=== PATIENT | female | born 1965 | race Two or more races ===

== ENCOUNTER → 2017-01-07 | Emergency (ER) | payer OTHER ==
[~2017-01-07] VITALS: Ht 152.4 cm; Wt 82.1 kg
[~2017-01-07] MED LIST: ASPIR 8181 MG ORAL; GUAIFENESIN1200 MG PO; IBUPROFEN600 MG ORAL; LISINOPRIL20 MG ORAL; METFORMIN HCL850 M1 ORAL; NASONEX17 GM NASAL; NITROFURANTOIN100 M2 ORAL; NORCO 5-325 TA1 EACH ORAL; ZOCOR20 MG ORAL
[2017-01-07 18:27] VITALS: BP 155/96
--- NOTE | 2017-01-07 18:59 | Emergency Room Report ---
History of Present Illness General Chief Complaint: Upper Respiratory Illness Source: Patient Present Illness HPI 51 YO female presents to the ED c/o : nasal congestion, increased sinus pressure , dry cough , and 8/10 sore throat with increased phlegm x 2 months. pt. has been treated with 2 courses of ABX by her PCP, and has been taking OTC nasal decongestant daily with prescription decongestant. pt states initially she felt a bit better then her nasal congestion and rhinorrhea increased. denies purulent drainage, UNDERWOOD, fevers, chills, or productive cough. pt. states she can feel something dripping down her throat at night, and is not able to breath through the nose easily. denies hx. of dm or immune compromise, denies rashes. Denies CP, Palpitations, LOC, AMS, dizziness, Changes in Vision, Sensation, paresthesias, or a sudden severe headache. Allergies: Coded Allergies: No Known Allergies (Unverified , 07/21/15) Patient History Past Medical History: see triage record Past Surgical History: none Pertinent Family History: none Last Menstrual Period: 01/06/17 Now: No Immunizations: UTD Reviewed Nursing Documentation: PMH: Agreed, PSxH: Agreed Nursing Documentation-PMH Past Medical History: No History, Except For Hx Cardiac Problems: No - Hyperlipidemia Hx Hypertension: Yes Hx Pacemaker: No Hx Asthma: No Hx COPD: No Hx Diabetes: Yes Hx Cancer: No Hx Gastrointestinal Problems: No Hx Dialysis: No Hx Neurological Problems: No Hx Cerebrovascular Accident: No Hx Seizures: No Review of Systems All Other Systems: negative except mentioned in HPI Physical Exam Vital Signs Date Time Temp Pulse Resp B/P Pulse Ox O2 Delivery O2 Flow Rate FiO2 01/07/17 18:18 97.9 87 16 155/96 100 Room Air Sp02 EP Interpretation: reviewed, normal General Appearance: no apparent distress, alert, GCS 15, non-toxic Head: normocephalic, atraumatic Eyes: bilateral eye PERRL, bilateral eye normal inspection ENT: hearing grossly normal, no angioedema, normal voice, TMs + canals normal, uvula midline, moist mucus membranes, nasal congestion - minimal patency to the nares bilaterally, no appreciable rhinorrhea noted, no purulent d/c, no nasal discoloration/bruising or rash. , pharyngeal erythema - cobble stone appearance , no petechiae, no exudates, evidence of Post nasal drainage Neck: full range of motion, no meningismus, no bony tend, supple/symm/no masses Respiratory: chest non-tender, lungs clear, normal breath sounds, no wheezing, speaking full sentences Cardiovascular #1: regular rate, rhythm, no edema Gastrointestinal: normal bowel sounds, non tender, soft, no guarding, no rebound Rectal: deferred Genitourinary: no CVA tenderness Musculoskeletal: back normal, gait/station normal, normal range of motion, non- tender, no calf tenderness Neurologic: alert, oriented x3, responsive, motor strength/tone normal, sensory intact, speech normal Psychiatric: judgement/insight normal, memory normal, mood/affect normal, no suicidal/homicidal ideation Skin: normal color, no rash, warm/dry, well hydrated Lymphatic: no adenopathy Medical Decision Making PA Attestation Dr. Padilla is my supervising Physician whom patient management has been discussed with. Diagnostic Impression: Primary Impression: Nasal congestion due to prolonged use of decongestants Additional Impression: Post-nasal drainage ER Course 51 YO female presents to the ED c/o : nasal congestion, increased sinus pressure , dry cough , and 8/10 sore throat with increased phlegm x 2 months. pt. has been treated with 2 courses of abx by her pcp, and has been taking OTC nasal decongestant daily with prescription decongestant. pt states initially she felt a bit better then her nasal congestion and rhinorrhea increased. denies purulent drainage, UNDERWOOD, fevers, chills, or productive cough. pt. states she can feel something dripping down her throat at night, and is not able to breath through the nose easily. Ddx considered but are not limited to URI, pneumonia, PE, strep pharyngitis, meningitis, sinusitis, rebound congestion due to excessive decongestant use, allergies/rhinitis Vital signs: Pt. is afebrile, the remaining VS are WNL H&PE are most consistent with rebound nasal congestion and viral URI symptoms - no meningeal signs, oropharynx is not involved, no evidence of bacterial infection at this time. lungs are CTA. no purulent drainage noted from the nares. ORDERS: none required at this time, the diagnosis is clinical ED INTERVENTIONS: None required at this time. PT. EDUCATION: - Discussed antibiotic resistance with inappropriate prescribing of antibiotics for viral illnesses. Discussed signs and symptoms to indicate viral illness versus bacterial illness. - Also d/w pt. "rebound congestion" and that she has been doubling up unknowingly on pseudoephedrine and this should not be taken for prolonged periods of time. DISCHARGE: At this time pt. is stable for d/c to home. Will provide printed patient care instructions, and any necessary prescriptions. Care plan and follow up instructions have been discussed with the patient prior to discharge. Last Vital Signs Date Time Temp Pulse Resp B/P Pulse Ox O2 Delivery O2 Flow Rate FiO2 01/07/17 18:27 87 16 Room Air 01/07/17 18:27 97.9 155/96 100 Disposition: HOME, SELF-CARE Condition: Stable Scripts Guaifenesin (Guaifenesin) 1,200 Mg Tab.er.12h 1200 MG PO BID for 14 Days, #28 TAB Prov: Sarah Bonilla 01/07/17 Mometasone Furoate (NASONEX) 17 Gm [place].pump 2 SPRAYS NASAL DAILY, #17 GM 0 Refills Prov: Sarah Bonilla 01/07/17 Patient Instructions: Upper Respiratory Infection, Adult, [id number] Additional Instructions: Take medications as directed. Follow up with PCP in 3-5 days Return sooner to ED if new symptoms occur, or current symptoms become worse. - Please note that this Emergency Department Report was dictated using [employer] [place] technology software, occasionally this can lead to erroneous entry secondary to interpretation by the dictation equipment. Sarah Bonilla Jan 07, 2017 18:59
[2017-01-07 19:09] VITALS: BP 155/96
== END | disposition home or self-care (01) ==
LOC: EMR 20:09
DX: R09.81 Nasal congestion (principal); R09.82 Postnasal drip; E11.9 Type 2 diabetes mellitus without complications; I10 Essential (primary) hypertension; E78.5 Hyperlipidemia, unspecified
CPT/HCPCS: 99284

== ENCOUNTER 2019-09-25 17:47 | Emergency (ER) | payer MEDICAID, OTHER ==
[~2019-09-25] VITALS: Ht 152.4 cm; Wt 82.1 kg
--- NOTE | 2019-09-25 18:16 | NUR ---
ED Nurse Note: pt walked in c/o lower abd pain for past week, pt reports she has been having a lot of gas and bloating, reports she was seen by the primary doctor and was prescribed omeprazole and it helped relieve pain for a little bit but continue to have pain. pt denies n/v/d nor urinary problem nor constipation, pt reports normal BM. denies tenderness. abd soft nontender, active BS. will cont monitor.
[2019-09-25] MEDS ORDERED: Isovue-300 100ml vial INJ PRN (18:30)
--- NOTE | 2019-09-25 18:59 | NUR ---
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
[2019-09-25 19:12] LABS: APPEARANCE,URINE SLIGHTLY CLOUDY; BILIRUBIN, URINE NEGATIVE (NEGATIVE); COLOR,URINE BROWN; GLUCOSE, URINE (UA) NEGATIVE (NEGATIVE); KETONES,URINE 1+ (NEGATIVE); LEUKOCYTE ESTERASE ,URINE 3+ (NEGATIVE); NITRITE,URINE NEGATIVE (NEGATIVE); PH,URINE 5 (4.5-8.0); PROTEIN,URINE 1+ (NEGATIVE); UROBILINOGEN,URINE 1 MG/DL (0.0-1.0)
[2019-09-25 19:14] LABS: BASOPHILS % (AUTO) 1.9 % (0.0-2.0); EOSINOPHILS % (AUTO) 1.6 % (0.0-3.0); HEMATOCRIT 36.8 % (37.0-47.0); HEMOGLOBIN 12.2 G/DL (12.0-16.0); MEAN CORPUSCULAR VOLUME 81 FL (80-99); MONOCYTES % (AUTO) 7.5 % (1.0-10.0); PLATELET COUNT 274 K/UL (150-450); RED BLOOD COUNT 4.52 M/UL (4.20-5.40); WHITE BLOOD COUNT 8.5 K/UL (4.8-10.8)
[2019-09-25 19:26] LABS: ANION GAP 7 mmol/L (5-15); BLOOD UREA NITROGEN 23 mg/dL (7-18); CARBON DIOXIDE 29 MMOL/L (21-32); CHLORIDE 106 MMOL/L (98-107); POTASSIUM 3.9 MMOL/L (3.5-5.1); SODIUM 142 MMOL/L (136-145)
[2019-09-25 19:30] LABS: ALANINE AMINOTRANSFERASE 38 U/L (12-78); ALBUMIN 4.2 G/DL (3.4-5.0); ALBUMIN/GLOBULIN RATIO 1.3 (1.0-2.7); ALKALINE PHOSPHATASE 48 U/L (46-116); ASPARTATE AMINO TRANSFERASE 13 U/L (15-37); BILIRUBIN,TOTAL 0.3 MG/DL (0.2-1.0)
[2019-09-25 19:37] VITALS: BP 148/75
[2019-09-25] MEDS ORDERED: cefTRIAXone 1 GM in NS 55 ML IVPB ONE (20:15)
--- NOTE | 2019-09-25 20:29 | NUR ---
ED Nurse Note: pt resting at this time, iv antibiotic started per ERMD order, safety precautions in place, will cont monitor.
[2019-09-25 20:37] VITALS: BP 148/86
[2019-09-25 21:00] VITALS: BP 132/86
[2019-09-25] MEDS ORDERED: CIPROFLOXACIN500 M2 ORAL (21:00)
[2019-09-25] MEDS ORDERED: ACETAMINOPHEN-1 EAC1 ORAL (21:00)
--- NOTE | 2019-09-25 21:00 | NUR ---
ED Nurse Note: pt cleared to be d/c per ermd, pt discharge and aftercare instruction provided w/ prescription, pt education done via discussion and handout, pt advised to follow up with pcp or return to ed if changes in condition, vss, ambulatory w/ steady gait, left w/ all belongings, iv d/c and id band removed, pt verbalized understanding and agrees with plan.
--- NOTE | 2019-09-25 21:55 | Emergency Room Report ---
History of Present Illness General Chief Complaint: Abdominal Pain Source: Patient Present Illness HPI 54-year-old female presents ED for evaluation. Complaining of abdominal pain x1 week. Localized to lower abdomen. Comes and goes. Sharp, 9 out of 10, nonradiating. States the pain was so bad earlier today that she cried. Denies fevers or chills. Denies nausea or vomiting. Denies diarrhea. No other aggravating relieving factors. Denies any other associated symptoms Allergies: Coded Allergies: No Known Allergies (Unverified , 07/21/15) Patient History Past Medical History: DM, HTN Past Surgical History: none Pertinent Family History: none Social History: Denies: smoking, alcohol use, drug use Last Menstrual Period: MENOPAUSE Now: No Immunizations: UTD Reviewed Nursing Documentation: PMH: Agreed; PSxH: Agreed Nursing Documentation-PMH Past Medical History: No History, Except For Hx Cardiac Problems: No - Hyperlipidemia Hx Hypertension: Yes Hx Pacemaker: No Hx Asthma: No Hx COPD: No Hx Diabetes: Yes Hx Cancer: No Hx Gastrointestinal Problems: No Hx Dialysis: No Hx Neurological Problems: No Hx Cerebrovascular Accident: No Hx Seizures: No Review of Systems All Other Systems: negative except mentioned in HPI Physical Exam Vital Signs Date Time Temp Pulse Resp B/P (MAP) Pulse Ox O2 Delivery O2 Flow Rate FiO2 09/25/19 17:54 98.2 83 15 170/93 (118) 96 Room Air Sp02 EP Interpretation: reviewed, normal General Appearance: no apparent distress, alert, GCS 15, non-toxic Head: normocephalic, atraumatic Eyes: bilateral eye normal inspection, bilateral eye PERRL ENT: hearing grossly normal, normal pharynx, no angioedema, normal voice Neck: full range of motion, supple/symm/no masses Respiratory: chest non-tender, lungs clear, normal breath sounds, speaking full sentences Cardiovascular #1: regular rate, rhythm, no edema Cardiovascular #2: 2+ carotid (R), 2+ carotid (L), 2+ radial (R), 2+ radial (L) , 2+ dorsalis pedis (R), 2+ dorsalis pedis (L) Gastrointestinal: normal bowel sounds, soft, non-distended, no guarding, no rebound, tenderness - suprapubic Rectal: deferred Genitourinary: normal inspection, no CVA tenderness Musculoskeletal: back normal, gait/station normal, normal range of motion, non- tender Neurologic: alert, oriented x3, responsive, motor strength/tone normal, sensory intact, speech normal Psychiatric: judgement/insight normal, memory normal, mood/affect normal, no suicidal/homicidal ideation Reflexes: 3+ bicep (R), 3+ bicep (L), 3+ tricep (R), 3+ tricep (L), 3+ knee (R) , 3+ knee (L) Lymphatic: no adenopathy Medical Decision Making Diagnostic Impression: Primary Impression: Diverticulitis Additional Impression: Cystitis Labs Test 09/25/19 18:30 White Blood Count 8.5 K/UL (4.8-10.8) Red Blood Count 4.52 M/UL (4.20-5.40) Hemoglobin 12.2 G/DL (12.0-16.0) Hematocrit 36.8 % (37.0-47.0) Mean Corpuscular Volume 81 FL (80-99) Mean Corpuscular Hemoglobin 27.0 PG (27.0-31.0) Mean Corpuscular Hemoglobin Concent 33.2 G/DL (32.0-36.0) Red Cell Distribution Width 12.0 % (11.6-14.8) Platelet Count 274 K/UL (150-450) Mean Platelet Volume 7.1 FL (6.5-10.1) Neutrophils (%) (Auto) 65.0 % (45.0-75.0) Lymphocytes (%) (Auto) 24.0 % (20.0-45.0) Monocytes (%) (Auto) 7.5 % (1.0-10.0) Eosinophils (%) (Auto) 1.6 % (0.0-3.0) Basophils (%) (Auto) 1.9 % (0.0-2.0) Urine Color Brown Urine Appearance Slightly cloudy Urine pH 5 (4.5-8.0) Urine Specific [place] 1.025 (1.005-1.035) Urine Protein 1+ (NEGATIVE) Urine Glucose (UA) Negative (NEGATIVE) Urine Ketones 1+ (NEGATIVE) Urine Blood 2+ (NEGATIVE) Urine Nitrite Negative (NEGATIVE) Urine Bilirubin Negative (NEGATIVE) Urine Urobilinogen 1 MG/DL (0.0-1.0) Urine Leukocyte Esterase 3+ (NEGATIVE) Urine RBC 2-4 /HPF (0 - 2) Urine WBC 40-60 /HPF (0 - 2) Urine Squamous Epithelial Cells Occasional /LPF Urine Bacteria Few /HPF (NONE) Sodium Level 142 MMOL/L (136-145) Potassium Level 3.9 MMOL/L (3.5-5.1) Chloride Level 106 MMOL/L (98-107) Carbon Dioxide Level 29 MMOL/L (21-32) Anion Gap 7 mmol/L (5-15) Blood Urea Nitrogen 23 mg/dL (7-18) Creatinine 1.0 MG/DL (0.55-1.30) Estimat Glomerular Filtration Rate 57.8 mL/min (>60) Glucose Level 120 MG/DL (74-106) Calcium Level 9.0 MG/DL (8.5-10.1) Total Bilirubin 0.3 MG/DL (0.2-1.0) Aspartate Amino Transf (AST/SGOT) 13 U/L (15-37) Alanine Aminotransferase (ALT/SGPT) 38 U/L (12-78) Alkaline Phosphatase 48 U/L (46-116) Total Protein 7.5 G/DL (6.4-8.2) Albumin 4.2 G/DL (3.4-5.0) Globulin 3.3 g/dL Albumin/Globulin Ratio 1.3 (1.0-2.7) Lipase 197 U/L (73-393) CT/MRI/US Diagnostic Results CT/MRI/US Diagnostic Results : Imaging Test Ordered: CT A/P Impression ABDOMEN: Liver: Portions of the upper abdomen including portions of the liver and spleen were not imaged. Mild hepatic steatosis. Gallbladder and bile ducts: Cholelithiasis. No ductal dilation. Pancreas: Unremarkable. No mass. No ductal dilation. Spleen: See above. Adrenals: Unremarkable. No mass. Kidneys and ureters: 26 mm cortical renal cyst on the right. Nonobstructing left lower renal pole calculus. 16 mm parapelvic/cortical renal cyst on the left. Stomach and bowel: Mild wall thickening very short segment of proximal sigmoid colon with adjacent inflammatory changes. There is some fat content central to the inflammation. Negative for obstruction or pneumatosis. PELVIS: Appendix: No findings to suggest acute appendicitis. Bladder: Unremarkable. No mass. Reproductive: Unremarkable as visualized. ABDOMEN and PELVIS: Intraperitoneal space: Unremarkable. No free air. No significant fluid collection. Bones/joints: No acute fracture. No dislocation. Soft tissues: Unremarkable. Vasculature: Unremarkable. No abdominal aortic aneurysm. Lymph nodes: Unremarkable. No enlarged lymph nodes. Last Vital Signs Date Time Temp Pulse Resp B/P (MAP) Pulse Ox O2 Delivery O2 Flow Rate FiO2 09/25/19 19:37 98.2 86 16 98 Room Air 09/25/19 17:54 170/93 (118) Status: improved Disposition: HOME, SELF-CARE Condition: Stable Scripts Acetaminophen With Codeine (T#3) (TYLENOL #3 TAB*) Y Tab 1 TAB ORAL Q8H PRN for For Pain for 3 Days, #12 TAB Prov: Jeff Isabel MD 09/25/19 Ciprofloxacin Hcl* (CIPROFLOXACIN HCL*) 500 Mg Tablet 500 MG ORAL Q12H, #14 TAB 0 Refills Prov: Jeff Isabel MD 09/25/19 Patient Instructions: Diverticulitis, [id number], Urinary Tract Infection Jeff Isabel MD Sep 25, 2019 21:54
== END 2019-09-25 21:00 | disposition home or self-care (01) ==
LOC: EMR 18:17
DX: K57.92 Diverticulitis of intestine, part unspecified, without perforation or abscess without bleeding (principal); N30.90 Cystitis, unspecified without hematuria; E11.9 Type 2 diabetes mellitus without complications; I10 Essential (primary) hypertension; E78.5 Hyperlipidemia, unspecified; N28.1 Cyst of kidney, acquired; N20.0 Calculus of kidney
CPT/HCPCS: 36415; 74177; 80053; 81003; 83690; 85025; 87086; 96365; 96375; J0696; Q9967; S0028; Z7502; 99284

== ENCOUNTER 2020-02-21 08:22 | Emergency (ER) | payer SELFPAY ==
[~2020-02-21] VITALS: Ht 152.4 cm; Wt 77.1 kg
[~2020-02-21 08:22] MED LIST changes: +ACETAMINOPHEN-1 EAC1 ORAL; +CIPROFLOXACIN500 M2 ORAL
[2020-02-21 08:29] VITALS: BP 159/85
[2020-02-21] MEDS ORDERED: LOSARTAN POTASS25 MG ORAL (08:34)
--- NOTE | 2020-02-21 08:36 | NUR ---
ED Nurse Note: Pt walked into ED w/ c/o L underarm abscess for 4 days. Pt denies pain, numbness, or tingling in affected site. Abscess is red and swollen, bu tno discharge. Pt is alert and orientedx4, ambulatory. Pt denies cough, sneezing, runny nose.
[2020-02-21] MEDS ORDERED: Lidocaine 1% 10mg/ml/EPI 0.01mg/ml 30ml INJ ONE (09:00)
[2020-02-21] MEDS ORDERED: DOXYCYCLINE MO100 MG ORAL (09:18)
--- NOTE | 2020-02-21 09:22 | NUR ---
ED Nurse Note: Irrigated pts abscess site per MD order.
--- NOTE | 2020-02-21 09:38 | Emergency Room Report ---
History of Present Illness General Chief Complaint: Skin Rash/Abscess Source: Patient Present Illness HPI Patient is a 54-year-old female presents after increased left-sided axillary swelling. This is been gradual onset over the past 3 to 4 days. Onset after shaving. Denies any breast lump. Denies any weight loss or fever. Had been having increased pain to the area. Patient had previous history of diabetes. She denies any other locations of abscesses. Allergies: Coded Allergies: No Known Allergies (Unverified , 07/21/15) COVID-19 Screening Contact w/high risk pt: No Recent Travel to affected area: No Experienced COVID-19 symptoms?: No Patient History Past Medical History: see triage record Reviewed Nursing Documentation: PMH: Agreed; PSxH: Agreed Nursing Documentation-PMH Past Medical History: No History, Except For Hx Cardiac Problems: No Hx Hypertension: Yes Hx Pacemaker: No Hx Asthma: No Hx COPD: No Hx Diabetes: Yes Hx Cancer: No Hx Gastrointestinal Problems: No Hx Dialysis: No History Of Psychiatric Problem: No Hx Neurological Problems: No Hx Cerebrovascular Accident: No Hx Seizures: No Review of Systems All Other Systems: negative except mentioned in HPI Physical Exam Vital Signs Date Time Temp Pulse Resp B/P (MAP) Pulse Ox O2 Delivery O2 Flow Rate FiO2 02/21/20 08:29 98.4 14 159/85 99 Room Air 02/21/20 08:29 80 General Appearance: well appearing, no apparent distress, alert, GCS 15 Head: normocephalic, atraumatic ENT: hearing grossly normal, normal voice Neck: full range of motion, supple Respiratory: lungs clear, no respiratory distress, speaking full sentences Cardiovascular #1: normal inspection Musculoskeletal: no calf tenderness Neurologic: alert, motor strength/tone normal, normal gait Psychiatric: mood/affect normal Skin: other - Left axillary abscess approximately 3 cm Procedures Incision and Drainage Incision and Drainage : Consent: Emergent Site: axilla Blade Size: 15 I & D Procedure: betadine prep Wound Location: axilla Wound's Depth, Shape: superficial Wound Explored: clean Anesthesia: Lidocaine w/ Epi Volume Anesthetic (ccs): 4 Patient Tolerated: Well Complications: None Progress large amount of purulent drainage. Medical Decision Making Diagnostic Impression: Primary Impression: Abscess of axilla, left ER Course Patient presented for skin rash. Differential diagnosis included was not limited to abscess, cellulitis, folliculitis, necrotizing fascitis. Patient appears to have an axillary abscess. There does not appear to be any evidence of systemic toxicity. Abscess was incised and drained after consent. Drained approximately 3 cc of purulent material.She was advised that she should have some breast imaging if had not had any recently. Patient appears to be stable for outpatient management. Patient was advised wound care. She was advised to return if any worsening or other concerns. Last Vital Signs Date Time Temp Pulse Resp B/P (MAP) Pulse Ox O2 Delivery O2 Flow Rate FiO2 02/21/20 08:29 98.4 80 14 159/85 (109) 99 Room Air Status: improved Disposition: HOME, SELF-CARE Condition: Stable Scripts Doxycycline Monohydrate* (DOXYCYCLINE MONOHYDRATE*) 100 Mg Capsule 100 MG ORAL Q12H, #14 CAP 0 Refills Prov: Glen Rasmussen MD 02/21/20 Patient Instructions: Abscess Additional Instructions: Follow up with your doctor for recheck. Return if worse. Cover wound for next few days with gauze. Change gauze daily. Glen Rasmussen MD Feb 21, 2020 09:38
[2020-02-21 09:40] VITALS: BP 154/83
--- NOTE | 2020-02-21 09:40 | NUR ---
ER DISCHARGE NOTE: Patient is cleared to be discharged per ERMD, pt is aox4, on room air, with stable vital signs. pt was given dc and prescription instructions, pt was able to verbalize understanding, pt id band removed. pt is able to ambulate with steady gait. pt took all belongings. Pt educated regarding doxycyclin.
== END 2020-02-21 09:40 | disposition home or self-care (01) ==
LOC: EMR 09:03
DX: L02.412 Cutaneous abscess of left axilla (principal); I10 Essential (primary) hypertension
CPT/HCPCS: 99283

== ENCOUNTER 2020-02-27 11:29 | Emergency (ER) | payer SELFPAY ==
[~2020-02-27] VITALS: Ht 152.4 cm; Wt 82.6 kg
[~2020-02-27 11:29] MED LIST changes: +DOXYCYCLINE MO100 MG ORAL; +LOSARTAN POTASS25 MG ORAL
[2020-02-27 11:36] VITALS: BP 134/80
--- NOTE | 2020-02-27 11:36 | NUR ---
ED Nurse Note: pt walked into ED for c/o possible kidney stone. Pt reports pain on lower abd area x 2 days, reports vomiting last night.
--- NOTE | 2020-02-27 11:56 | Emergency Room Report ---
History of Present Illness General Chief Complaint: Abdominal Pain Source: Patient Present Illness HPI Patient 54-year-old female presents after increased right-sided flank pain. Onset last night. Associated nausea and vomiting. Prior history of kidney stones. Had previously had small stones to the left side. Denies any fever. Had recently been on antibiotics due to left axillary abscess. Denies any diarrhea or cough. Allergies: Coded Allergies: No Known Allergies (Unverified , 07/21/15) COVID-19 Screening Contact w/high risk pt: No Recent Travel to affected area: No Experienced COVID-19 symptoms?: No Patient History Now: No Reviewed Nursing Documentation: PMH: Agreed; PSxH: Agreed Nursing Documentation-PMH Hx Cardiac Problems: No Hx Hypertension: Yes Hx Pacemaker: No Hx Asthma: No Hx COPD: No Hx Diabetes: Yes Hx Cancer: No Hx Gastrointestinal Problems: No - kidney stone 01/2020 Hx Dialysis: No Hx Neurological Problems: No Hx Cerebrovascular Accident: No Hx Seizures: No Review of Systems All Other Systems: negative except mentioned in HPI Physical Exam Vital Signs Date Time Temp Pulse Resp B/P (MAP) Pulse Ox O2 Delivery O2 Flow Rate FiO2 02/27/20 11:35 98.1 89 19 129/84 (99) 98 Room Air Sp02 EP Interpretation: reviewed, normal General Appearance: normal inspection, well appearing, no apparent distress, alert, GCS 15 Head: atraumatic ENT: normal ENT inspection, hearing grossly normal, normal voice Neck: normal inspection, full range of motion, supple, no bony tend Respiratory: normal inspection, lungs clear, normal breath sounds, no respiratory distress, no retraction, no wheezing Cardiovascular #1: regular rate, rhythm, no edema Gastrointestinal: normal inspection, normal bowel sounds, non tender, soft, no guarding, no hernia Genitourinary: no CVA tenderness Musculoskeletal: normal inspection, back normal, normal range of motion Neurologic: alert, motor strength/tone normal, chief nursing executive III-XII nml as tested, oriented x3, responsive, speech normal, normal inspection Psychiatric: normal inspection, judgement/insight normal, mood/affect normal Skin: no rash, other - healed axillary abscess Medical Decision Making Diagnostic Impression: Primary Impression: Renal colic on right side Last Vital Signs Date Time Temp Pulse Resp B/P (MAP) Pulse Ox O2 Delivery O2 Flow Rate FiO2 02/27/20 11:35 98.1 89 19 129/84 (99) 98 Room Air Status: improved Disposition: HOME, SELF-CARE Condition: Stable Glen Rasmussen MD Feb 27, 2020 11:56
[2020-02-27] MEDS ORDERED: Ketorolac 60mg Inj IM ONE (12:00)
--- NOTE | 2020-02-27 13:13 | NUR ---
ED Nurse Note: UA SENT TO LAB
[2020-02-27] MEDS ORDERED: NORCO 5-325 TA1 EAC1 ORAL (13:19)
[2020-02-27 13:24] LABS: APPEARANCE,URINE CLEAR; BILIRUBIN, URINE 1+ (NEGATIVE); GLUCOSE, URINE (UA) NEGATIVE (NEGATIVE); KETONES,URINE NEGATIVE (NEGATIVE); LEUKOCYTE ESTERASE ,URINE 2+ (NEGATIVE); NITRITE,URINE POSITIVE (NEGATIVE); PH,URINE 5 (4.5-8.0); PROTEIN,URINE 1+ (NEGATIVE); UROBILINOGEN,URINE 4 MG/DL (0.0-1.0)
--- NOTE | 2020-02-27 13:30 | NUR ---
ED Nurse Note: US at bedside.
[2020-02-27 13:42] LABS: COLOR,URINE YELLOW
--- NOTE | 2020-02-27 14:05 | NUR ---
ER DISCHARGE NOTE: Patient is cleared to be discharged per ERMD, pt is aox4, on room air, with stable vital signs. pt was given dc and prescription instructions, pt was able to verbalize understanding, pt id band removed. pt is able to ambulate with steady gait. pt took all belongings.
--- NOTE | 2020-02-27 14:07 | Diagnostic Imaging Report ---
EXAM: US Abdomen Limited, Right Upper Quadrant CLINICAL HISTORY: ABD PAIN TECHNIQUE: Real-time ultrasound of the right upper quadrant with image documentation. COMPARISON: CT abdomen/pelvis on 09/25/2019 FINDINGS: Gallbladder: Stone or sludge ball in the gallbladder. No significant gallbladder wall thickening or pericholecystic fluid Right kidney: Right kidney measures 10.1 cm in length. Complex right renal cyst measuring up to 2.7 cm. Small calcifications along the periphery of the cyst. No stones. No hydronephrosis. IMPRESSION: 1. No hydronephrosis or definite stone right kidney. Complex right renal cyst. 2. Cholelithiasis versus sludgeball. No sonographic evidence for acute cholecystitis.
== END 2020-02-27 14:02 | disposition home or self-care (01) ==
LOC: EMR 11:50
DX: N23 Unspecified renal colic (principal); Z87.442 Personal history of urinary calculi; I10 Essential (primary) hypertension; E11.9 Type 2 diabetes mellitus without complications
CPT/HCPCS: 76705; 81003; 96372; 99284

== ENCOUNTER 2020-06-26 18:54 | Emergency (ER) | payer SELFPAY ==
[~2020-06-26] VITALS: Ht 162.6 cm; Wt 79.4 kg
[~2020-06-26 18:54] MED LIST changes: +NORCO 5-325 TA1 EAC1 ORAL
[2020-06-26 19:10] VITALS: BP 170/100
--- NOTE | 2020-06-26 19:45 | Emergency Room Report ---
History of Present Illness General Chief Complaint: Eye Problems Source: Patient, Family Member Present Illness HPI 55-year-old female with past medical history of high blood pressure, high cholesterol, pre diabetes, presents with burning and swelling to bilateral eyes , left greater than right, onset prior to arrival. She reports that she has some skin tags on her eyelids and she she put some "milk of a fig leaf" over her eyelids to try to remove the skin tags but then started feeling burning and swelling to the eyes. She has never used the milk of a fig leaf before. She denies any rash, throat closure, difficulty breathing, vomiting. No visual changes. She has been applying ice to the affected area with mild relief. No medications taken. Allergies: Coded Allergies: No Known Allergies (Unverified , 07/21/15) COVID-19 Screening Contact w/high risk pt: No Recent Travel to affected area: No Experienced COVID-19 symptoms?: No COVID-19 Testing performed PHYSICAL THERAPY NURSE: No Patient History Past Medical History: see triage record Last Menstrual Period: na Reviewed Nursing Documentation: PMH: Agreed; PSxH: Agreed Nursing Documentation-PMH Past Medical History: No History, Except For Hx Cardiac Problems: No Hx Hypertension: Yes Hx Pacemaker: No Hx Asthma: No Hx COPD: No Hx Diabetes: Yes Hx Cancer: No Hx Gastrointestinal Problems: No - kidney stone 01/2020 Hx Dialysis: No Hx Neurological Problems: No Hx Cerebrovascular Accident: No Hx Seizures: No Review of Systems All Other Systems: negative except mentioned in HPI Physical Exam Vital Signs Date Time Temp Pulse Resp B/P (MAP) Pulse Ox O2 Delivery O2 Flow Rate FiO2 06/26/20 19:01 98.4 103 20 170/100 (123) 98 Room Air Sp02 EP Interpretation: reviewed, normal General Appearance: normal inspection, well appearing, no apparent distress, alert, GCS 15, non-toxic Eyes: left eye lid inflammation - There is angioedema of the left upper eyelid. No eye involvement. No signs of cellulitis. ENT: EOM grossly intact, normal pharynx, normal voice, uvula midline Neck: normal inspection, full range of motion, supple, thyroid normal, no meningismus, no bony tend Respiratory: chest non-tender, lungs clear, normal breath sounds, no respiratory distress Cardiovascular #1: normal peripheral pulses, regular rate, rhythm Musculoskeletal: normal inspection, normal range of motion, gait/station normal Neurologic: alert, motor strength/tone normal, b operator III-XII nml as tested, oriented x3, sensory intact, speech normal Psychiatric: judgement/insight normal, mood/affect normal Skin: no rash, normal color, warm/dry Lymphatic: no adenopathy Medical Decision Making PA Attestation Dr. Huerta is my supervising physician whom patient management and care has been discussed with. Diagnostic Impression: Primary Impression: Angioedema Qualified Codes: T78.3XXA - Angioneurotic edema, initial encounter Additional Impression: Allergic reaction Qualified Codes: T78.40XA - Allergy, unspecified, initial encounter ER Course Pt. presents to the ED c/o bilateral eyelid swelling, left greater than right, status post rubbing milk of a fake leaf on her eyelids to try to remove skin tags. Ddx considered but are not limited to allergic reaction, angioedema, anaphylaxis , cellulitis. Vital signs: are WNL, pt. is afebrile H&PE are most consistent with allergic reaction, angioedema. No signs of anaphylaxis. ORDERS: none required at this time, the diagnosis is clinical. ED INTERVENTIONS: Patient given Benadryl, Prednisone, Pepcid for allergic reaction. Significant relief upon recheck. DISCHARGE: At this time pt. is stable for d/c to home. Will provide printed patient care instructions, and any necessary prescriptions. Advised to follow up outpatient in 1-2 days. Care plan and follow up instructions have been discussed with the patient prior to discharge. Last Vital Signs Date Time Temp Pulse Resp B/P (MAP) Pulse Ox O2 Delivery O2 Flow Rate FiO2 06/26/20 19:01 98.4 103 20 170/100 (123) 98 Room Air Disposition: HOME, SELF-CARE Condition: Stable Scripts Cetirizine Hcl* (ZYRTEC*) 10 Mg Tablet 10 MG ORAL DAILY, #30 TAB 0 Refills Prov: Bensoussan,Jessica N. P.A. 06/26/20 Cephalexin* (KEFLEX*) 500 Mg Capsule 500 MG ORAL EVERY 6 HOURS for 7 Days, #28 CAP Prov: Bensoussan,Jessica N. P.A. 06/26/20 Diphenhydramine Hcl (BENADRYL ALLERGY) 25 Mg Tablet 25 MG PO QHS, #10 TAB Prov: Bensoussan,Jessica N. P.A. 06/26/20 Erythromycin Base (Erythromycin) 1 Gm Oint...g. 1 GM OP BID, #1 TUB Prov: Jessica Hayden 06/26/20 Jessica Hayden Jun 26, 2020 19:45
[2020-06-26] MEDS ORDERED: CEPHALEXIN500 MG ORAL (20:16)
[2020-06-26] MEDS ORDERED: ZYRTEC10 MG ORAL (20:16)
[2020-06-26] MEDS ORDERED: ERYTHROMYCIN1 G1 OP (20:16)
[2020-06-26] MEDS ORDERED: BENADRYL ALLERG25 M1 PO (20:16)
[2020-06-26 20:20] VITALS: BP 145/95
== END 2020-06-26 20:20 | disposition home or self-care (01) ==
LOC: EMR 20:16
DX: T78.3XXA Angioneurotic edema, initial encounter (principal); T78.40XA Allergy, unspecified, initial encounter; I10 Essential (primary) hypertension; E11.9 Type 2 diabetes mellitus without complications; Z87.442 Personal history of urinary calculi; X58.XXXA Exposure to other specified factors, initial encounter; Y92.9 Unspecified place or not applicable; L91.8 Other hypertrophic disorders of the skin
CPT/HCPCS: 99282; J7512

== ENCOUNTER 2020-11-06 09:14 | Emergency (ER) | payer OTHER ==
[~2020-11-06] VITALS: Ht 152.4 cm; Wt 78.9 kg
[~2020-11-06 09:14] MED LIST changes: +BENADRYL ALLERG25 M1 PO; +CEPHALEXIN500 MG ORAL; +ERYTHROMYCIN1 G1 OP; +ZYRTEC10 MG ORAL
[2020-11-06 09:21] VITALS: BP 169/92
--- NOTE | 2020-11-06 09:30 | NUR ---
ED Nurse Note: Patient from home and walked in due to right flank pain and burning sensation when urinating x 2 days. Patient denies vaginal discharge but has history of kidney stones. patient is AAO x4, ambulatory with non labored breathing.
[2020-11-06] MEDS ORDERED: CEPHALEXIN500 MG ORAL (09:45)
[2020-11-06] MEDS ORDERED: NAPROXEN500 M1 ORAL (09:45)
--- NOTE | 2020-11-06 09:46 | Emergency Room Report ---
History of Present Illness General Chief Complaint: Female Urogenital Problems Source: Patient Present Illness HPI 55-year-old obese female with past medical history of diabetes, hypertension, dyslipidemia presents with dysuria and right flank pain x5 days. Patient was previously seen by her primary care doctor and prescribed Macrobid for which she has been compliant with, and has been taking Pyridium for dysuria, with moderate relief. She denies fevers, chills, nausea, vomiting, melena, hematochezia, chest pain, shortness of breath, cough or any other symptoms. She states that she has remote history of kidney stone so she's here today to "make sure". The patient's symptoms were gradual onset, severity was moderate, duration since 5 days. Quality: Burning Past medical history: Diabetes, hypertension, dyslipidemia Past surgical history: Denies Smoking: Denies Alcohol use: Denies Drug use: Denies Review of systems: CONST: No fevers or chills, No night sweats PULMONARY: No productive cough, No shortness of breath CARDIAC: No chest pain, No palpitations GI: No vomiting, No diarrhea , No melena_or_BRBPR : ++ dysuria, No hematuria, No discharge NEURO: No new_focal_weakness_or_numbness, No confusion, No vision changes 14 point Review of Systems is otherwise negative except per HPI Physical Exam: GENERAL: Awake_alert_ nontoxic, no acute distress Spo2 98% on RA -normal EYES: Extraocular muscles are intact. Conjunctivae clear. Lids without swelling ENT: External nose and ear normal_in_appearance. Oropharynx clear. Head_atraumat ic, Moist_oral_mucosa NECK: No JVD. No meningismus. No thyromegaly. Supple. Trachea midline RESP: Normal respiratory effort. Symmetric rise. No stridor. Clear_to_auscultation_No_rales_No_wheezes CARDIAC: Regular rate and regular rhytm. No_significant pedal edema. ABDOMEN: Soft. Nondistended. Nontender_No_rebound_or_guarding. No CVA tenderness to palpation MSK: Normal muscle tone, without rigidity. Extremities without asymmetric deformity or swelling. SKIN: Warm and dry. No visible cyanosis or pallor NEUROLOGIC: Alert, oriented x3. Motor_and_sensation_grossly_intact. No truncal ataxia. Gait_normal Psych: Normal mood and affect, normal judgment and insight - COORDINATION OF CARE Case was discussed with: Patient Any labs and imaging that were ordered were interpreted as part of the medical decision making: Medical Decision Making/Plan: Differential diagnosis includes cystitis versus pyelonephritis versus vaginitis, cholecystitis, choledocholithiasis, hepatitis, small bowel obstruction, volvulus, AAA, pancreatitis, atypical appendicitis, gastroparesis, gastritis, peptic ulcer disease, among others. Patient is well appearing with stable vital signs. Abdominal exam is non peritoneal with no guarding or rebound. No CVA tenderness to palpation. Labs were ordered and were reassuring. No BASIA or acidosis. No significant leukocytosis. UA is consistent with UTI. CT shows R 3 mm UVJ stone. No [place] or pyelonephritis. Patient received rocephin in ED. Will dc with cipro and flomax. Advised patient to drink copious fluids at home to create more urine and stay hydrated. UCx sent. Recommend repeat abdominal reexamination in 24 hours. Pertinent results reviewed with the patient. I educated the patient on the current treatment plan including the risks, benefits, and alternatives. I also discussed the extent and limitations of the current evaluation. The patient expressed understanding and agreement with plan. I recommended PMD follow-up within 1-2 days. Also advised that the patient return to the Emergency Department as soon as possible if they experience any new, persistent, or worsening symptoms. Allergies: Coded Allergies: No Known Allergies (Unverified , 07/21/15) COVID-19 Screening Contact w/high risk pt: No Recent Travel to affected area: No Experienced COVID-19 symptoms?: No COVID-19 Testing performed TECHNICAL SME: No Nursing Documentation-PMH Past Medical History: No History, Except For Hx Cardiac Problems: No Hx Hypertension: Yes Hx Pacemaker: No Hx Asthma: No Hx COPD: No Hx Diabetes: Yes Hx Cancer: No Hx Gastrointestinal Problems: No - kidney stone 01/2020 Hx Dialysis: No Hx Neurological Problems: No Hx Cerebrovascular Accident: No Hx Seizures: No Physical Exam Vital Signs Date Time Temp Pulse Resp B/P (MAP) Pulse Ox O2 Delivery O2 Flow Rate FiO2 11/06/20 09:21 98.1 90 18 169/92 96 Room Air Sp02 EP Interpretation: reviewed, normal Medical Decision Making Diagnostic Impression: Primary Impression: Urinary tract infection Additional Impressions: Renal cyst Renal colic on right side Calculus of ureterovesical junction (UVJ) Cholelithiasis Diverticulosis CT/MRI/US Diagnostic Results CT/MRI/US Diagnostic Results : Impression CT Abdomen Pelvis WO Contrast Indication: Right flank pain Findings: There is a 3 mm calculus projected at the right ureterovesical junction, not evident previously. There is minimal if any ectasia of the right ureter, which is slightly larger in caliber than that on the left, and no definite hydronephrosis. There is at least one punctate calculus in the right renal sinus. At least 4 calyceal calculi are seen in the left renal sinus, largest in the upper pole measuring 3 mm in diameter. No left ureteral calculi, hydronephrosis, or hydroureter demonstrated. The bladder is otherwise unremarkable. Lack of IV contrast limits assessment of the renal parenchyma Again demonstrated is a right upper pole cyst and a left lower pole renal parapelvic cyst. Lack of IV contrast limits assessment of the other solid organs. The liver is unremarkable. The gallbladder contains gallstones. No gallbladder wall thickening. There is no biliary ductal dilatation. The pancreas, spleen, adrenals are unremarkable. No pelvic mass or adenopathy. There is colonic diverticulosis. No evidence of diverticulitis. Normal appendix. No small bowel distention. No free or loculated intraperitoneal gas or fluid is evident. The distal esophagus, stomach, duodenum are unremarkable. The included lung bases demonstrate slight mosaic attenuation pattern, probably due to atelectasis. The bones are unremarkable Impression: Positive for minimally obstructive calculus at the right distal ureteral orifice; there is minimal ectasia of the right ureter and no hydronephrosis Bilateral intrarenal calculi Bilateral renal cysts, also previously described Cholelithiasis Colonic diverticulosis. Nonspecific mosaic perfusion pattern at the lung bases, probably due to compressive atelectatic changes Reevaluation Time: 10:45 Last Vital Signs Date Time Temp Pulse Resp B/P (MAP) Pulse Ox O2 Delivery O2 Flow Rate FiO2 11/06/20 09:21 98.1 90 18 169/92 (117) 96 Room Air Status: improved Disposition: HOME, SELF-CARE Admit Decision Time: 11:00 Condition: Stable Scripts Ciprofloxacin Hcl* (CIPROFLOXACIN HCL*) 500 Mg Tablet 500 MG ORAL Q12H for 7 Days, #14 TAB 0 Refills Prov: Indy Huerta D.O. 11/06/20 Tamsulosin HCl (Flomax) 0.4 Mg Cap.er.24h 0.4 MG ORAL DAILY for BPH for 10 Days, #10 CAP Prov: Indy Huerta D.O. 11/06/20 Naproxen* (NAPROXEN*) 500 Mg Tablet.dr 500 MG ORAL TWICE A DAY for 10 Days, #20 TAB Prov: Indy Huerta D.O. 11/06/20 Patient Instructions: Urinary Tract Infection Additional Instructions: Instructions for patient/strategy intern: Follow up with your physician in 1-2 days. You are found to have a kidney stone. You need to drink plenty of water and fluids in order to pass it. Usually will take within 5 to 7 days. Follow-up with your doctor sooner if your condition requires a more timely clinical reevaluation. Return to the emergency department immediately if you feel that your condition is worsening or if you have any new or concerning symptoms. Review your discharge instructions and take any prescriptions given as instructed. [facility] PROVIDES FREE OR LOW-COST HEALTH SERVICES TO PEOPLE WHO CAN SHOW PROOF THAT THEY LIVE IN [facility]. TO FIND MORE CLINICS PARTNERED WITH THE [facility] TO PROVIDE SERVICE, PLEASE CALL . You had a urine culture done to evaluate for specific types of bacteria ass ociated with your urinary infection. You were given an antibiotic that should treat most bacteria that usually occur with a urinary infection, but there is always the possibility of antibiotic resistance. You will receive a telephone call if it is positive. If you do not receive a call, they are likely negative, but you should return to medical records to get your results to be sure, or have your primary doctor obtain them from our hospital, and especially if you are having persistent symptoms. If you are having persistent symptoms and are not able to get a hold of your culture results or your regular doctor you should return to the ER for a reevaluation. Indy Huerta D.O. Nov 06, 2020 09:46
--- NOTE | 2020-11-06 09:48 | NUR ---
ED Nurse Note: Collected blood and urine then sent to lab.
--- NOTE | 2020-11-06 09:55 | NUR ---
ED Nurse Note: Patient taken to CT and stable.
--- NOTE | 2020-11-06 10:06 | NUR ---
ED Nurse Note: patient came back from CT in stable condition.
[2020-11-06 10:12] LABS: APPEARANCE,URINE SLIGHTLY CLOUDY; BASOPHILS % (AUTO) 1.5 % (0.0-2.0); BILIRUBIN, URINE NEGATIVE (NEGATIVE); GLUCOSE, URINE (UA) NEGATIVE (NEGATIVE); HEMATOCRIT 40.6 % (37.0-47.0); HEMOGLOBIN 13.8 G/DL (12.0-16.0); KETONES,URINE NEGATIVE (NEGATIVE); LEUKOCYTE ESTERASE ,URINE 2+ (NEGATIVE); LYMPHOCYTES % (AUTO) 25.7 % (20.0-45.0); MEAN CORPUSCULAR VOLUME 82 FL (80-99); MONOCYTES % (AUTO) 6.1 % (1.0-10.0); NEUTROPHILS % (AUTO) 63.7 % (45.0-75.0); NITRITE,URINE POSITIVE (NEGATIVE); PH,URINE 5 (4.5-8.0); PLATELET COUNT 291 K/UL (150-450); PROTEIN,URINE 2+ (NEGATIVE); RED BLOOD COUNT 4.98 M/UL (4.20-5.40); RED CELL DISTRIBUTION WIDTH 14.9 % (11.6-14.8); UROBILINOGEN,URINE 1 MG/DL (0.0-1.0); WHITE BLOOD COUNT 5.6 K/UL (4.8-10.8)
[2020-11-06 10:15] LABS: COLOR,URINE YELLOW
[2020-11-06 10:25] LABS: ANION GAP 7 mmol/L (5-15); BLOOD UREA NITROGEN 15 mg/dL (7-18); CALCIUM 9.1 MG/DL (8.5-10.1); CARBON DIOXIDE 27 MMOL/L (21-32); CHLORIDE 105 MMOL/L (98-107); CREATININE 0.7 MG/DL (0.55-1.30); POTASSIUM 4.4 MMOL/L (3.5-5.1); SODIUM 139 MMOL/L (136-145)
[2020-11-06 10:30] LABS: ALANINE AMINOTRANSFERASE 47 U/L (12-78); ALBUMIN/GLOBULIN RATIO 1.1 (1.0-2.7); ALKALINE PHOSPHATASE 47 U/L (46-116); ASPARTATE AMINO TRANSFERASE 16 U/L (15-37); BILIRUBIN,TOTAL 0.5 MG/DL (0.2-1.0)
[2020-11-06] MEDS ORDERED: cefTRIAXone 1 GM in NS 55 ML IVPB ONE (10:45)
--- NOTE | 2020-11-06 11:03 | Diagnostic Imaging Report ---
Indication: Right flank pain Technique: Spiral acquisitions obtained through the abdomen and pelvis. No oral or IV contrast utilized, per urinary stone protocol. Multiplanar reconstructions were generated. Total dose length product 431 mGycm. CTDIvol(s) 7.9 mGy. Dose reduction achieved using automated exposure control and iterative reconstruction Comparison: 09/25/2019 contrast study Findings: There is a 3 mm calculus projected at the right ureterovesical junction, not evident previously. There is minimal if any ectasia of the right ureter, which is slightly larger in caliber than that on the left, and no definite hydronephrosis. There is at least one punctate calculus in the right renal sinus. At least 4 calyceal calculi are seen in the left renal sinus, largest in the upper pole measuring 3 mm in diameter. No left ureteral calculi, hydronephrosis, or hydroureter demonstrated. The bladder is otherwise unremarkable. Lack of IV contrast limits assessment of the renal parenchyma Again demonstrated is a right upper pole cyst and a left lower pole renal parapelvic cyst. Lack of IV contrast limits assessment of the other solid organs. The liver is unremarkable. The gallbladder contains gallstones. No gallbladder wall thickening. There is no biliary ductal dilatation. The pancreas, spleen, adrenals are unremarkable. No pelvic mass or adenopathy. There is colonic diverticulosis. No evidence of diverticulitis. Normal appendix. No small bowel distention. No free or loculated intraperitoneal gas or fluid is evident. The distal esophagus, stomach, duodenum are unremarkable. The included lung bases demonstrate slight mosaic attenuation pattern, probably due to atelectasis. The bones are unremarkable Impression: Positive for minimally obstructive calculus at the right distal ureteral orifice; there is minimal ectasia of the right ureter and no hydronephrosis Bilateral intrarenal calculi Bilateral renal cysts, also previously described Cholelithiasis Colonic diverticulosis. Nonspecific mosaic perfusion pattern at the lung bases, probably due to compressive atelectatic changes The CT scanner at [facility] is accredited by the [employer] and the scans are performed using protocols designed to limit radiation exposure to as low as reasonably achievable to attain images of sufficient resolution adequate for diagnostic evaluation.
[2020-11-06] MEDS ORDERED: FLOMAX0.4 MG ORAL (11:10)
[2020-11-06] MEDS ORDERED: CIPROFLOXACIN500 M2 ORAL (11:11)
[2020-11-06 11:30] VITALS: BP 145/89
--- NOTE | 2020-11-06 11:30 | NUR ---
ER DISCHARGE NOTE: Patient is cleared to be discharged per ERMD, pt is aox4, on room air, with stable vital signs. pt was given dc and prescription instructions, pt was able to verbalize understanding, pt id band and iv site removed without complications. pt is able to ambulate with steady gait. pt took all belongings.
== END 2020-11-06 11:30 | disposition home or self-care (01) ==
LOC: EMR 09:50
DX: N39.0 Urinary tract infection, site not specified (principal); N28.1 Cyst of kidney, acquired; N23 Unspecified renal colic; N20.1 Calculus of ureter; K80.20 Calculus of gallbladder without cholecystitis without obstruction; K57.90 Diverticulosis of intestine, part unspecified, without perforation or abscess without bleeding; E11.9 Type 2 diabetes mellitus without complications; I10 Essential (primary) hypertension; E78.5 Hyperlipidemia, unspecified
CPT/HCPCS: 36415; 74176; 80053; 81003; 83690; 85025; 87086; 87181; 96365; 99284; J0696

== ENCOUNTER 2021-01-24 20:42 | Emergency (ER) | payer OTHER ==
[~2021-01-24] VITALS: Ht 152.4 cm; Wt 79.4 kg
[~2021-01-24 20:42] MED LIST changes: +FLOMAX0.4 MG ORAL; +NAPROXEN500 M1 ORAL
[2021-01-24] MEDS ORDERED: Phenazopyridine 200mg tab ORAL ONE (21:15)
[2021-01-24 21:19] VITALS: BP 156/90
[2021-01-24] MEDS ORDERED: FLUCONAZOLE100 MG ORAL (21:29)
[2021-01-24] MEDS ORDERED: Fluconazole 150mg tab ORAL ONE (21:30)
[2021-01-24 21:37] LABS: APPEARANCE,URINE CLEAR; BILIRUBIN, URINE NEGATIVE (NEGATIVE); COLOR,URINE PALE YELLOW; GLUCOSE, URINE (UA) NEGATIVE (NEGATIVE); KETONES,URINE NEGATIVE (NEGATIVE); LEUKOCYTE ESTERASE ,URINE 2+ (NEGATIVE); NITRITE,URINE NEGATIVE (NEGATIVE); PH,URINE 6 (4.5-8.0); PROTEIN,URINE NEGATIVE (NEGATIVE); UROBILINOGEN,URINE NORMAL MG/DL (0.0-1.0)
[2021-01-24 21:38] VITALS: BP 140/90
--- NOTE | 2021-01-28 14:07 | Emergency Room Report ---
History of Present Illness General Chief Complaint: Female Urogenital Problems Source: Patient Present Illness HPI Patient is a 55-year-old female who presented for increased vaginal discomfort. Had recently been started on antibiotics due to urinary tract infection. Prior history of kidney stones. Denies any flank pain. Had been currently taking Macrobid. Patient is followed by Dr. Marion. Patient denies any vomiting. Reports having increased pain with urination. Associated urgency. Allergies: Coded Allergies: No Known Allergies (Unverified , 07/21/15) COVID-19 Screening Contact w/high risk pt: No Recent Travel to affected area: No Experienced COVID-19 symptoms?: No COVID-19 Testing performed CHIEF PHARMACIST: No Patient History Past Medical History: see triage record Now: No Reviewed Nursing Documentation: PMH: Agreed; PSxH: Agreed Nursing Documentation-PMH Past Medical History: Deferred Hx Cardiac Problems: No Hx Hypertension: Yes Hx Pacemaker: No Hx Asthma: No Hx COPD: No Hx Diabetes: Yes Hx Cancer: No Hx Gastrointestinal Problems: No - kidney stone 01/2020 Hx Dialysis: No Hx Neurological Problems: No Hx Cerebrovascular Accident: No Hx Seizures: No Review of Systems All Other Systems: negative except mentioned in HPI Physical Exam Vital Signs Date Time Temp Pulse Resp B/P (MAP) Pulse Ox O2 Delivery O2 Flow Rate FiO2 01/24/21 20:46 98.6 89 18 168/93 (118) 100 Room Air Sp02 EP Interpretation: reviewed, normal General Appearance: normal inspection, no apparent distress, alert, GCS 15, non-toxic, obese Head: atraumatic ENT: normal ENT inspection, hearing grossly normal, normal voice Neck: normal inspection, full range of motion, supple, no bony tend Respiratory: normal inspection, lungs clear, normal breath sounds, no respir atory distress, no retraction, no wheezing Cardiovascular #1: regular rate, rhythm, no edema Gastrointestinal: normal inspection, normal bowel sounds, non tender, soft, no guarding, no hernia Genitourinary: no CVA tenderness, other - Some increased white vaginal discharge. Musculoskeletal: normal inspection, back normal, normal range of motion Neurologic: alert, motor strength/tone normal, commodity lead III-XII nml as tested, responsive, speech normal, normal inspection Psychiatric: normal inspection, judgement/insight normal, mood/affect normal Medical Decision Making Diagnostic Impression: Primary Impression: Vaginal candidiasis ER Course Patient presents for increased vaginal discomfort. Differential diagnosis include was not limited to urinary stone, vaginal candidiasis, urinary tract infection among others. Patient's vaginal exam appears to show some evidence of vaginal candidiasis. This is likely related to patient's recent use of antibiotics. Patient does not appear to have any evidence of systemic toxicity or signs of kidney stone which is causing any significant obstruction at this time. Patient does have prior history of kidney stones and patient appears to be well controlled in terms of her pain. Patient was given prescription for Diflucan as well as Diflucan in the emergency department. She advised to follow-up with Dr. Marion for recheck in the next 1 to 2 days. She is advised to return if worse. This medical record is generated with [employer] director of agriculture software. There may be some director of agriculture discrepancies related to use of this software Last Vital Signs Date Time Temp Pulse Resp B/P (MAP) Pulse Ox O2 Delivery O2 Flow Rate FiO2 01/24/21 21:38 97.3 77 17 140/90 99 Room Air Status: improved Disposition: HOME, SELF-CARE Condition: Stable Scripts Fluconazole (FLUCONAZOLE) 100 Mg Tablet 100 MG ORAL DAILY, #1 TAB 0 Refills Prov: Glen Rasmussen MD 01/24/21 Referrals: NON PHYSICIAN (PCP) Patient Instructions: Vaginitis, [id number] Additional Instructions: Follow up with Dr. Marion for recheck. Return if worse. Glen Rasmussen MD Jan 28, 2021 14:07
== END 2021-01-24 21:38 | disposition home or self-care (01) ==
LOC: EMR 21:06
DX: B37.3 Candidiasis of vulva and vagina (principal); I10 Essential (primary) hypertension; Z87.442 Personal history of urinary calculi
CPT/HCPCS: 81003; 99283